=== PATIENT | male | born 1955 | race Caucasian/White ===

== ENCOUNTER 2019-01-26 16:18 | Emergency (ER) | payer MEDICARE, MEDICAID ==
[~2019-01-26] VITALS: Ht 175.3 cm; Wt 60.0 kg
[2019-01-26 16:29] VITALS: BP 95/56
[2019-01-26] MEDS ORDERED: LURA40TA3 PO (16:33)
== END 2019-01-26 16:40 | disposition home or self-care (01) ==
LOC: ER 16:19
DX: F31.9 Bipolar disorder, unspecified (principal); Z76.0 Encounter for issue of repeat prescription; Z88.5 Allergy status to narcotic agent
CPT/HCPCS: 99283

== ENCOUNTER 2019-06-13 19:45 | Emergency (ER) | payer MEDICARE, MEDICAID ==
[~2019-06-13] VITALS: Ht 175.3 cm; Wt 63.2 kg
[~2019-06-13 19:45] MED LIST: LURA40TA3 PO
[2019-06-13 20:24] LABS: BASOPHILS # (AUTO) 0.1 X10'3 (0-0.2); BASOPHILS % (AUTO) 0.7 % (0-1); EOSINOPHILS # (AUTO) 0.2 X10'3 (0-0.9); EOSINOPHILS % (AUTO) 1.3 % (0-6); HEMATOCRIT 38.4 % (42.0-52.0); HEMOGLOBIN 12.8 g/dl (14.0-17.9); LYMPHOCYTES # (AUTO) 1.5 X10'3 (1.1-4.8); LYMPHOCYTES % (AUTO) 12.2 % (21-51); MEAN CORPUSCULAR HEMOGLOBIN 29.8 PG (27.0-31.0); MEAN CORPUSCULAR HGB CONC 33.4 g/dL (33.0-36.5); MEAN CORPUSCULAR VOLUME 89.3 FL (78-98); MEAN PLATELET VOLUME 9.3 FL (7.4-10.4); MONOCYTES # (AUTO) 0.8 X10'3 (0-0.9); MONOCYTES % (AUTO) 6.7 % (2-12); NEUTROPHILS # (AUTO) 9.8 X10'3 (1.8-7.7); NEUTROPHILS % (AUTO) 79.1 % (42-75); PLATELET COUNT 186 X10'3 (140-440); WHITE BLOOD COUNT 12.4 X10'3 (4.5-11.0)
[2019-06-13 20:39] LABS: ALANINE AMINOTRANSFERASE 18 U/L (12-78); ALBUMIN/GLOBULIN RATIO 1.3 (1.1-1.5); ALKALINE PHOSPHATASE 79 IU/L (46-116); ANION GAP 11 (8-16); ASPARTATE AMINO TRANSFERASE 17 U/L (10-37); BILIRUBIN,TOTAL 0.6 MG/DL (0.1-1.0); BLOOD UREA NITROGEN 14 MG/DL (7-18); BUN/CREATININE RATIO 9.2 (5.4-32.0); CALCIUM 8.8 MG/DL (8.5-10.1); CHLORIDE 104 MMOL/L (99-107); CREATININE 1.53 MG/DL (0.60-1.10); GLUCOSE 93 MG/DL (70-104); POTASSIUM 4.4 MMOL/L (3.5-5.1); SODIUM 139 MMOL/L (135-145); TOTAL CARBON DIOXIDE 23.8 MMOL/L (24-32); TOTAL PROTEIN 7.1 G/DL (6.4-8.2); eGFR 47 ML/MIN
[2019-06-13] MEDS ORDERED: normal saline 1000ML IV soln IVB ONE (20:45)
[2019-06-13] MEDS ORDERED: ipratropium/albuterol 3ml nebule NEB ONE (20:45)
[2019-06-13] MEDS ORDERED: methylPREDNISolone sod succ 125mg/2ml vial IV ONE (20:45)
[2019-06-13] MEDS ORDERED: UMEC62.5 INH (22:08)
[2019-06-13] MEDS ORDERED: PRED10TA PO (22:08)
[2019-06-13] MEDS ORDERED: AZIT250T PO (22:12)
[2019-06-13] MEDS ORDERED: HYDROcodone/acetaminophen 5mg/325mg tablet PO ONE (22:25)
[2019-06-13 22:29] VITALS: BP 99/74
== END 2019-06-13 22:53 | disposition home or self-care (01) ==
LOC: ER 19:46
DX: R06.03 Acute respiratory distress (principal); J44.9 Chronic obstructive pulmonary disease, unspecified; Z88.5 Allergy status to narcotic agent; Z79.899 Other long term (current) drug therapy
CPT/HCPCS: 36415; 71045; 80053; 84484; 85025; 94640; 96374; 99284; J2930; J7030; 93005; 94760

== ENCOUNTER 2019-07-11 12:27 | Emergency (ER) | payer MEDICARE, MEDICAID ==
[~2019-07-11] VITALS: Ht 175.3 cm; Wt 63.0 kg
[~2019-07-11 12:27] MED LIST changes: +AZIT250T PO; +PRED10TA PO; +UMEC62.5 INH
--- NOTE | 2019-07-11 14:02 | NUR ---
Pt states he is here only for med refill today.
[2019-07-11] MEDS ORDERED: UMEC62.5 INH (14:53)
[2019-07-11] MEDS ORDERED: LURA40TA3 PO (14:53)
[2019-07-11] MEDS ORDERED: AZIT250T29 PO (14:55)
[2019-07-11] MEDS ORDERED: PRED20TA PO (14:55)
[2019-07-11] MEDS ORDERED: ALBU8.5H8 IH (14:55)
[2019-07-11] MEDS ORDERED: ipratropium/albuterol 3ml nebule NEB ONE (15:00)
[2019-07-11 15:56] VITALS: BP 108/61
== END 2019-07-11 15:59 | disposition home or self-care (01) ==
LOC: ER 12:27
DX: J44.1 Chronic obstructive pulmonary disease with (acute) exacerbation (principal); F31.9 Bipolar disorder, unspecified; Z60.2 Problems related to living alone; Z88.5 Allergy status to narcotic agent; Z79.2 Long term (current) use of antibiotics; Z79.899 Other long term (current) drug therapy
CPT/HCPCS: 94640; 94760; 99283

== ENCOUNTER 2019-07-13 14:11 | Emergency (ER) | payer MEDICARE, MEDICAID ==
[~2019-07-13] VITALS: Ht 175.3 cm; Wt 65.9 kg
[~2019-07-13 14:11] MED LIST changes: +ALBU8.5H8 IH; +AZIT250T29 PO; +PRED20TA PO
[2019-07-13 14:28] VITALS: BP 122/66
[2019-07-13] MEDS ORDERED: ZOLP5TAB2 PO ×2 (15:47→15:48)
== END 2019-07-13 15:57 | disposition home or self-care (01) ==
LOC: ER 14:12
DX: G47.00 Insomnia, unspecified (principal); J44.9 Chronic obstructive pulmonary disease, unspecified; F31.9 Bipolar disorder, unspecified; Z88.5 Allergy status to narcotic agent; Z79.899 Other long term (current) drug therapy
CPT/HCPCS: 99283

== ENCOUNTER 2019-07-16 19:17 | Emergency (ER) | payer MEDICARE, MEDICAID ==
[~2019-07-16] VITALS: Ht 175.3 cm; Wt 61.6 kg
[~2019-07-16 19:17] MED LIST changes: +ZOLP5TAB2 PO
[2019-07-16] MEDS ORDERED: ipratropium/albuterol 3ml nebule NEB ONE (20:30)
[2019-07-16 20:31] LABS: BASOPHILS % (AUTO) 0.4 % (0-1); EOSINOPHILS # (AUTO) 0.1 X10'3 (0-0.9); EOSINOPHILS % (AUTO) 0.6 % (0-6); HEMATOCRIT 37.9 % (42.0-52.0); HEMOGLOBIN 12.9 g/dl (14.0-17.9); LYMPHOCYTES % (AUTO) 11.6 % (21-51); MEAN CORPUSCULAR HEMOGLOBIN 30.9 PG (27.0-31.0); MEAN CORPUSCULAR HGB CONC 34.1 g/dL (33.0-36.5); MEAN CORPUSCULAR VOLUME 90.6 FL (78-98); MEAN PLATELET VOLUME 8.6 FL (7.4-10.4); MONOCYTES # (AUTO) 0.7 X10'3 (0-0.9); MONOCYTES % (AUTO) 7.9 % (2-12); NEUTROPHILS # (AUTO) 7.2 X10'3 (1.8-7.7); NEUTROPHILS % (AUTO) 79.5 % (42-75); PLATELET COUNT 211 X10'3 (140-440); RED BLOOD COUNT 4.19 X10'6 (4.70-6.10); RED CELL DISTRIBUTION WIDTH 13.5 % (11.5-14.5)
[2019-07-16] MEDS ORDERED: normal saline 1000ml 1,000 ML IV ONE (20:40)
[2019-07-16 20:45] LABS: PARTIAL THROMBOPLASTIN TIME 28 SECONDS (22-32)
[2019-07-16 20:50] LABS: ALANINE AMINOTRANSFERASE 19 U/L (12-78); ALBUMIN 3.4 G/DL (3.4-5.0); ALBUMIN/GLOBULIN RATIO 0.9 (1.1-1.5); ALKALINE PHOSPHATASE 64 IU/L (46-116); ANION GAP 9 (8-16); ASPARTATE AMINO TRANSFERASE 23 U/L (10-37); BILIRUBIN,TOTAL 0.3 MG/DL (0.1-1.0); BLOOD UREA NITROGEN 12 MG/DL (7-18); BUN/CREATININE RATIO 8.7 (5.4-32.0); CALCIUM 8.8 MG/DL (8.5-10.1); CHLORIDE 101 MMOL/L (99-107); CREATININE 1.38 MG/DL (0.60-1.10); GLUCOSE 121 MG/DL (70-104); POTASSIUM 4.6 MMOL/L (3.5-5.1); SODIUM 136 MMOL/L (135-145); TOTAL CARBON DIOXIDE 25.6 MMOL/L (24-32); TOTAL PROTEIN 7.2 G/DL (6.4-8.2); eGFR 52 ML/MIN
[2019-07-16 20:51] LABS: CLARITY,URINE CLEAR (Clear); COLOR,URINE YELLOW (Yellow); GLUCOSE, URINE NEGATIVE (Neg); KETONES,URINE NEGATIVE (Neg); LEUKOCYTE ESTERASE ,URINE NEGATIVE (Neg); NITRITES, URINE NEGATIVE (Neg); OCCULT BLOOD,URINE NEGATIVE (Neg); PH,URINE 5.5 (4.8-8.0); PROTEIN,URINE NEGATIVE (Neg)
[2019-07-16 21:00] LABS: UA COLLECTION TYPE CLN CATCH MIDSTREAM
[2019-07-16] MEDS ORDERED: iohexol 350MG/ML 100ml bottle IV ONE (21:03)
[2019-07-16] MEDS ORDERED: LEVO500T89 PO (22:37)
[2019-07-16] MEDS ORDERED: levoFLOXACIN 750MG TABLET PO ONE (22:40)
[2019-07-16] MEDS ORDERED: triamcinolone acetonide 40mg/ml inj IM ONE (22:40)
[2019-07-16] MEDS ORDERED: ZOLP5TAB2 PO (22:41)
[2019-07-16] MEDS ORDERED: ROBCFL PO (22:41)
[2019-07-16 23:04] VITALS: BP 108/74
== END 2019-07-16 23:06 | disposition home or self-care (01) ==
LOC: ER 19:17
DX: J20.9 Acute bronchitis, unspecified (principal); J44.9 Chronic obstructive pulmonary disease, unspecified; F31.9 Bipolar disorder, unspecified; Z87.891 Personal history of nicotine dependence; Z60.2 Problems related to living alone; Z88.5 Allergy status to narcotic agent; Z79.2 Long term (current) use of antibiotics; Z79.899 Other long term (current) drug therapy
CPT/HCPCS: 36415; 71045; 71275; 80053; 81003; 83605; 84145; 85025; 85610; 85730; 87040; 94640; 96372; 99285; J3301; J7030; Q9967; 94760; 96374